=== PATIENT | female | born 1970 | race Caucasian/White ===

== ENCOUNTER 2016-06-05 18:23 | Emergency (ER) | payer OTHER ==
[2016-06-05] MEDS ORDERED: Lidocaine 1% 20 ML MDV ONE (18:47)
[2016-06-05] MEDS ORDERED: cefTRIAXone\\ROCEPHIN 500 MG VIAL ONE (18:47)
[2016-06-05] MEDS ORDERED: Ketorolac Tromethamine 60 MG/2 ML VIAL ONE (18:47)
[2016-06-05 18:59] LABS: #Basophils 0.1 thou/uL (0.0-0.2); #Eosinphils 0.2 thou/uL (0.0-0.7); #Lymphocytes 1.4 thou/uL (1.20-3.40); #Monocytes 0.6 thou/uL (0.11-0.59); #Neutrophils 4.2 thou/uL (1.40-6.50); %Basophils 0.9 % (0.0-1.0); %Eosinophils 2.6 % (0.0-10.0); %Monocytes 9.7 % (0.0-10.0); Anisocytosis SLIGHT = 6-15 cells (100X) (0-5/hpf); Elliptocytes MODERATE= 6-15 cells (100X) (0-1/hpf); Hematocrit 29.5 % (36.0-47.0); Hypochromia MODERATE=16-30 cells (100X) (0-5/hpf); Mean Platelet Volume 5.6 fL (7.4-10.4); Microcytosis MODERATE=15-30 cells (100X) (0-5/hpf); Poikilocytosis SLIGHT = 6-15 cells (100X) (0-5/hpf); Red Blood Cell (RBC) Count 4.26 mill/uL (4.20-5.40); Tear Drops SLIGHT = 2-5 cells (100X) (0-1/hpf); White Blood Cell (WBC) Count 6.4 thou/uL (4.8-10.8)
[2016-06-05 19:08] LABS: Bacteria/HPF Rare-Few HPF (None Seen); Bilirubin Negative (Negative); Blood, Urine Large (Negative); Glucose, Urine (Dipstick) Negative (Negative); Ketone, Urine Negative (Negative); Nitrite Negative (Negative); Protein, Urine (Dipstick) Negative (Neg-Trace); RBC/HPF 21-50 HPF (0-3); Squamous Epithelial 0-3 HPF (0-3); Urobilinogen 0.2 mg/dL (0.2-1.0); WBC/HPF 0-3 HPF (0-3)
[2016-06-05 19:09] LABS: Anion Gap 11 mmol/L (10-20); BUN (Urea Nitrogen) 9 mg/dL (7.0-18.7); Calc. Creatinine Clearance 0 mL/min (70-130); Calcium 8.8 mg/dL (7.8-10.44); Carbon Dioxide 24 mmol/L (22-29); Chloride 108 mmol/L (98-107); Estimated GFR-MDRD Greater than 90
--- NOTE | 2016-06-05 19:42 | ERRECORD ---
[facility] EMERGENCY RECORD ROS CONSTITUTIONAL: Negative constitutional review of systems, Historian denies chills, denies fever. (19:12 MBRI) CARDIOVASCULAR: Historian denies chest pain, denies dyspnea on exertion. (19:12 MBRI) RESPIRATORY: Historian denies cough, denies shortness of breath. (19:12 MBRI) GI: Negative gastrointestinal review of systems, Historian denies abdominal pain, denies diarrhea, denies nausea, denies vomiting. (19:12 MBRI) GENITOURINARY FEMALE: Historian denies dysuria, denies frequency, denies hematuria, denies , denies urgency, denies urine output changes, denies urinary retention, reports vaginal bleeding, reports vaginal discharge, reports vaginal itching. (19:13 MBRI) MUSCULOSKELETAL: Historian denies injury, Denies any musculoskeletal pain. (19:12 MBRI) SKIN: Negative skin review of systems, Historian denies skin changes. (19:12 MBRI) NEUROLOGIC: Negative neurologic review of systems, Historian denies focal weakness, denies sensory changes. (19:12 MBRI) PAST MEDICAL HISTORY (18:32 KMOR) MEDICAL HISTORY: No past medical history. FEMALE SURGICAL HISTORY: d&c, Surgical history of tonsillectomy, Surgical history of tubal ligation. PSYCHIATRIC HISTORY: No previous psychiatric history. SOCIAL HISTORY: Patient drinks socially, rarely, Patient denies drug use, Patient has no smoking history. KNOWN ALLERGIES No Known Drug Allergies CURRENT MEDICATIONS (18:30 KMOR) None VITAL SIGNS VITAL SIGNS: BP: 134/95, Pulse: 88, Resp: 18, Pain: 9, O2 sat: 99 on Room Air, Time: 06/05/2016 18:29. (18:29 KMOR) Temp: 97.8 (Oral), Time: 06/05/2016 18:59. (18:59 KMOR) PHYSICAL EXAM CONSTITUTIONAL: Vital Signs Reviewed, Nursing notes reviewed. (19:12 MBRI) HEAD: Head exam included findings of head atraumatic, normocephalic. (19:12 MBRI) RESPIRATORY CHEST: Respiratory exam included findings of no respiratory distress, Breath sounds clear, No wheezing, No rales, No rhonchi. (19:12 MBRI) CARDIOVASCULAR: Cardiovascular exam included findings of heart &a-1R&a+25V*p+0X*q3189M*c202B*c15G*c2P*p-0X&a-25V&a+1R Name: Felipa Reyes : 1970 F46 MedRec: [id number] AcctNum: [id number] Prepared: Sonja Jun 05, 2016 19:29 by Interface Page [address] [facility] EMERGENCY RECORD rate regular rate and rhythm, Heart sounds normal, Carotids normal. (19:12 MBRI) ABDOMEN FEMALE: Abdominal exam included findings of abdomen nontender, Bowel sounds normal, no peritoneal signs, no rigidity, no guarding, no rebound. (19:12 MBRI) GENITOURINARY FEMALE: External genitalia normal, Genitourinary exam included findings of external genitalia normal, vaginal mucosa normal, Discharge present, brown in color, moderate amount. (19:13 MBRI) PELVIC: Speculum exam abnormal, external os closed, bloody discharge present, Foreign body noted, appears to be tampon., Bimanual exam abnormal, internal os closed, Cervix not dilated, No cervical motion tenderness, Uterus tender, Escorted by ZHEN Carson. (19:14 MBRI) BACK: Back exam included findings of normal inspection, no tenderness. (19:12 MBRI) UPPER EXTREMITY: Upper extremity exam included findings of inspection normal, Radial pulse normal, no cyanosis, no clubbing, no edema. (19:12 MBRI) LOWER EXTREMITY: Lower extremity exam included findings of inspection normal, femoral pulses normal, no cyanosis, no clubbing, no edema, no tenderness noted. (19:12 MBRI) NEURO: Neuro exam findings include patient oriented to person, place and time, Speech normal, no focal motor deficits. (19:12 MBRI) SKIN: Skin exam included findings of skin warm, dry, and normal in color. (19:12 MBRI) MEDICATION ADMINISTRATION SUMMARY Drug Name: ketorolac intramuscular, Dose Ordered: 60 mg, Route: Intramuscular, Status: Given, Time: 18:52 06/05/2016, Drug Name: cefTRIAXone injection, Dose Ordered: 250 mg, Route: Intramuscular, Status: Given, Time: 18:51 06/05/2016, Detailed record available in Medication Service section. DOCTOR NOTES (19:15 MBRI) TEXT: Pt evaluated at this time and appears stable. No findings to suggest sig illness or issue requiring hospitalization or further intervention at this time. Plan of care discussed with pt and questions answered. Pt was informed of reasons for follow-up and return and they stated understanding. Pt is stable for d/c home at this time. PROBLEM LIST No recorded problems DIAGNOSIS (19:16 MBRI) FINAL: PRIMARY: vaginal foreign body - removed, ADDITIONAL: ANEMIA UNSPECIFIED, FE PELVIC INFLAMMATORY DISEASE &a-1R&a+25V*p+0X*c9703F*c202B*c15G*c2P*p-0X&a-25V&a+1R Name: Felipa Reyes : 1970 F46 MedRec: [id number] AcctNum: [id number] Prepared: Sonja Jun 05, 2016 19:29 by Interface Page [address] [facility] EMERGENCY RECORD UNS. PRESCRIPTION (18:46 MBRI) doxycycline hyclate oral: CAPSULE (HARD, SOFT, ETC.) : 100 mg : ORAL : Quantity: 1 Unit: tab(s) Route: ORAL Schedule: 2 times a day Dispense: 20 May substitute. Refills: No Refills . NOTES: this medication will render your control pills ineffective while you are on them. Use other forms of contraception. No refills. DISPOSITION PATIENT: Disposition Type: Discharge, Disposition: *Discharge Home, Condition: Good. (19:15 MBRI) Patient left the department. (19:25 MAYO) Quevedo: MAYO=ZHEN Jeffrey, Eliane LILLY=ZHEN Calderon, Yamileth MBRI=DO Johnson Matthew &a-1R&a+25V*p+0X*i3397M*c202B*c15G*c2P*p-0X&a-25V&a+1R Name: Felipa Reyes : 1970 F46 MedRec: [id number] AcctNum: [id number] Prepared: Sonja Jun 05, 2016 19:29 by Interface Page 3 of 3 pMD MTDD
--- NOTE | 2016-06-05 19:48 | PICIS ---
[facility] EMERGENCY RECORD TRIAGE (18:30 KMOR) TRIAGE NOTES: Vaginal bleed, odor, low back pain and bodyaches intermittent x 1 month. nausea. (18:30 KMOR) PATIENT: NAME: Felipa Reyes, AGE: 46, GENDER: female, : [facility] 1970, TIME OF GREET: Sun Jun 05, 2016 18:24, PREFERRED LANGUAGE: Slovak, ETHNICITY: Unable to Determine, ECODE BILLING MAP: [facility], SSN: [id number], Zip Code: [address], KG WEIGHT: 80.74, PHONE: , , , PERSON ID: [id number], PAYMENT: [employer], PCP: Sharon Ingram. (18:30 KMOR) COMPLAINT: Vaginal bleeding. (18:30 KMOR) ADMISSION: URGENCY: 3 Urgent, ADMISSION SOURCE: Home, TRANSPORT: CAR, BED: ER -03. (18:30 KMOR) ASSESSMENT: Assessment: A&OX4. RR EVEN AND UNLABORED., Symptoms began greater than 1 week ago. (18:32 KMOR) PAIN: Patient complains of pain described as, aching, on a scale 0-10 patient rates pain as 9, Location LOW BACK. (18:32 KMOR) SIRS SCORING: Heart Rate 55-109 (0), Temp range 96.8-101.1 (0), respiratory rate 12-24 (0), Mental Status altered: no (0), Infection or Suspected Infection: No. (18:32 KMOR) TRIAGE SCREENING: Patient denies suicidal ideation, Patient denies presence of domestic violence. (18:32 KMOR) LMP: Last menstrual period: 05/15/2016. (18:32 KMOR) PROVIDERS: TRIAGE NURSE: Yamileth Calderon RN. (18:30 KMOR) VITAL SIGNS: BP 134/95, Pulse 88, Resp 18, Pain 9, O2 Sat 99, on Room Air, Time 06/05/2016 18:29. (18:29 KMOR) KNOWN ALLERGIES No Known Drug Allergies CURRENT MEDICATIONS (18:30 KMOR) None VITAL SIGNS VITAL SIGNS: BP: 134/95, Pulse: 88, Resp: 18, Pain: 9, O2 sat: 99 on Room Air, Time: 06/05/2016 18:29. (18:29 KMOR) Temp: 97.8 (Oral), Time: 06/05/2016 18:59. (18:59 KMOR) NURSING ASSESSMENT: GENITOURINARY (18:54 KMOR) CONSTITUTIONAL: Patient arrives ambulatory, Gait steady, History obtained from patient, Patient appears comfortable, Patient cooperative, Patient alert, Oriented to person, place and time, Skin warm, Skin dry, Skin normal in color, Mucous membranes pink, Mucous membranes moist, Patient is well-groomed, Patient complains of Vaginal bleeding, Patient reports low back pain and vaginal bleeding intermittent for past 3 weeks. Reports foul odor with bleeding. Report generalized body aches and headache recently. PAIN FEMALE: aching pain, generalized., on a scale 0-10 patient rates pain as 9. &a-1R&a+25V*p+0X*o3735N*c202B*c15G*c2P*p-0X&a-25V&a+1R Name: Felipa Reyes : 1970 F46 MedRec: [id number] AcctNum: [id number] Prepared: Sonja Jun 05, 2016 19:35 by Interface Page 1 of 8 pMD [facility] EMERGENCY RECORD GENITOURINARY FEMALE: no associated urinary complaints, Associated with vaginal bleeding, small amount, of brown blood, no clots, no tissue, Onset of bleedin05/19/2016 18:57, Associated with vaginal foreign body, tampon, Date and time inserted: 3 weeks, Not . ABDOMEN: Abdomen assessment findings include abdomen symmetrical, no associated nausea, no associated vomiting. NOTES: Patient tolerated procedure well. NURSING PROCEDURE: PELVIC EXAM (18:58 KMOR) PATIENT IDENTIFIER: Patient actively involved in identification process, Patient's identity verified by patient stating name, Patient's identity verified by patient stating date. PELVIC EXAM: Pelvic exam indicated for vaginal bleeding, Pelvic exam performed by Dr. Johnson, Pelvic exam assisted by ZHEN Carson, Exam findings include, moderate amount, of red vaginal discharge, with odor, Exam findings include bleeding, moderate amount, no clots, no tissue, GC/Chlamydia cultures obtained, labeled in the presence of the patient and sent to lab, Specimen for wet prep collected, labeled in the presence of the patient and sent to lab, Notes: tampon removed. FOLLOW-UP: After procedure, bleeding continues, scant amount. NOTES: Patient tolerated procedure well. NURSING PROCEDURE: URINE COLLECTION (19:01 KMOR) PATIENT IDENTIFIER: Patient actively involved in identification process, Patient's identity verified by patient stating name, Patient's identity verified by patient stating date. URINE COLLECTION FEMALE: Urine collected by mid-stream clean catch, Output amount (mL) 100ml, urine clear in color, and cloudy, Specimen labeled in the presence of the patient and sent to lab, Specimen obtained for culture labeled in the presence of the patient and sent to lab. ORDER DETAILS Order Name: Basic Metabolic Panel, Status: Active, Time: 18:33 06/05/2016, User: LAUREN, - Ordered for: DO Johnson Matthew, - Entered by: DO Johnson Matthew - Sonja Jun 05, 2016 18:33, - Quantity: 1, Order Name: CBC with Differential, Status: Active, Time: 18:32 06/05/2016, User: LAUREN, - Ordered for: DO Johnson Matthew, - Entered by: DO Johnson Matthew - Sonja Jun 05, 2016 18:32, - Quantity: 1, Order Name: Culture, Urine, Status: Active, Time: 19:01 06/05/2016, &a-1R&a+25V*p+0X*z7761Q*c202B*c15G*c2P*p-0X&a-25V&a+1R Name: Felipa Reyes : 1970 F46 MedRec: [id number] AcctNum: [id number] Prepared: Sonja Jun 05, 2016 19:35 by Interface Page 2 of 8 pMD [facility] EMERGENCY RECORD User: VIJAYA, - Ordered for: DO Johnson Matthew, - Entered by: ZHEN Calderon Krista - Sonja Jun 05, 2016 19:01, - Quantity: 1, Order Name: GC/Chlamydia Profile by PCR, Status: Active, Time: 18:34 06/05/2016, User: LAUREN, - Ordered for: DO Johnson Matthew, - Entered by: DO Johnson Matthew - Sonja Jun 05, 2016 18:34, - Quantity: 1, Order Name: Test, Serum (BHCG), Status: Active, Time: 18:32 06/05/2016, User: LAUREN, - Ordered for: DO Johnson Matthew, - Entered by: DO Johnson Matthew - Sun Jun 05, 2016 18:32, - Quantity: 1, Order Name: PROCEDURE SET-UP, Status: Done, Time: 18:37 06/05/2016, User: ADRIENNE, - Ordered for: DO Johnson Matthew, - Entered by: DO Johnson Matthew - Sun Jun 05, 2016 18:34, - Quantity: 1, Order Name: Urinalysis with Microscopic, Status: Active, Time: 19:01 06/05/2016, User: VIJAYA, - Ordered for: DO Johnson Matthew, - Entered by: ZHEN Calderon Krista - Sonja Jun 05, 2016 19:01, - Quantity: 1, Order Name: VP3, Status: Active, Time: 18:34 06/05/2016, User: LAUREN, - Ordered for: DO Johnson Matthew, - Entered by: DO Johnson Matthew - Sun Jun 05, 2016 18:34, - Quantity: 1. MEDICATION ADMINISTRATION SUMMARY Drug Name: ketorolac intramuscular, Dose Ordered: 60 mg, Route: Intramuscular, Status: Given, Time: 18:52 06/05/2016, Drug Name: cefTRIAXone injection, Dose Ordered: 250 mg, Route: Intramuscular, Status: Given, Time: 18:51 06/05/2016, Detailed record available in Medication Service section. MEDICATION SERVICE cefTRIAXone injection: Order: cefTRIAXone injection (ceftriaxone sodium) - Dose: 250 mg : Intramuscular Ordered by: Abel Johnson DO Entered by: DO Sonja Hernandez Jun 05, 2016 18:44 , Acknowledged by: Marie Thacker RN MonJun 05, 2016 18:45 Documented as given by: ZHEN Barrios Jun 05, 2016 18:51 Patient, Medication, Dose, Route and Time verified prior to administration. IM antibiotic, Medication administered to right buttock, Medication combined for administration with 1% LIDOCAINE, Correct patient, time, route, dose and medication confirmed prior to administration, Patient advised of actions and side-effects prior to administration, &a-1R&a+25V*p+0X*r4244R*c202B*c15G*c2P*p-0X&a-25V&a+1R Name: Felipa Reyes : 1970 F46 MedRec: [id number] AcctNum: [id number] Prepared: Sonja Jun 05, 2016 19:35 by Interface Page 3 of 8 pMD [facility] EMERGENCY RECORD Allergies confirmed and medications reviewed prior to administration, Patient in position of comfort, Side rails up, Cart in lowest position, Family at bedside. ketorolac intramuscular: Order: ketorolac intramuscular (ketorolac tromethamine) - Dose: 60 mg : Intramuscular Ordered by: Abel Johnson DO Entered by: DO Sonja Hernandez Jun 05, 2016 18:45 , Acknowledged by: ZHEN Barrios Jun 05, 2016 18:45 Documented as given by: ZHEN Barrios Jun 05, 2016 18:52 Patient, Medication, Dose, Route and Time verified prior to administration. IM medication, Medication administered to left buttock, Correct patient, time, route, dose and medication confirmed prior to administration, Patient advised of actions and side-effects prior to administration, Allergies confirmed and medications reviewed prior to administration, Patient in position of comfort, Side rails up, Cart in lowest position, Family at bedside. ROS CONSTITUTIONAL: Negative constitutional review of systems, Historian denies chills, denies fever. (19:12 MBRI) CARDIOVASCULAR: Historian denies chest pain, denies dyspnea on exertion. (19:12 MBRI) RESPIRATORY: Historian denies cough, denies shortness of breath. (19:12 MBRI) GI: Negative gastrointestinal review of systems, Historian denies abdominal pain, denies diarrhea, denies nausea, denies vomiting. (19:12 MBRI) GENITOURINARY FEMALE: Historian denies dysuria, denies frequency, denies hematuria, denies , denies urgency, denies urine output changes, denies urinary retention, reports vaginal bleeding, reports vaginal discharge, reports vaginal itching. (19:13 MBRI) MUSCULOSKELETAL: Historian denies injury, Denies any musculoskeletal pain. (19:12 MBRI) SKIN: Negative skin review of systems, Historian denies skin changes. (19:12 MBRI) NEUROLOGIC: Negative neurologic review of systems, Historian denies focal weakness, denies sensory changes. (19:12 MBRI) PAST MEDICAL HISTORY (18:32 KMOR) MEDICAL HISTORY: No past medical history. FEMALE SURGICAL HISTORY: d&c, Surgical history of tonsillectomy, Surgical history of tubal ligation. PSYCHIATRIC HISTORY: No previous psychiatric history. SOCIAL HISTORY: Patient drinks socially, rarely, Patient denies drug use, Patient has no smoking history. PHYSICAL EXAM CONSTITUTIONAL: Vital Signs Reviewed, Nursing notes reviewed. &a-1R&a+25V*p+0X*g1759E*c202B*c15G*c2P*p-0X&a-25V&a+1R Name: Felipa Reyes : 1970 F46 MedRec: [id number] AcctNum: [id number] Prepared: Sonja Jun 05, 2016 19:35 by Interface Page 4 of 8 pMD [facility] EMERGENCY RECORD (19:12 MBRI) HEAD: Head exam included findings of head atraumatic, normocephalic. (19:12 MBRI) RESPIRATORY CHEST: Respiratory exam included findings of no respiratory distress, Breath sounds clear, No wheezing, No rales, No rhonchi. (19:12 MBRI) CARDIOVASCULAR: Cardiovascular exam included findings of heart rate regular rate and rhythm, Heart sounds normal, Carotids normal. (19:12 MBRI) ABDOMEN FEMALE: Abdominal exam included findings of abdomen nontender, Bowel sounds normal, no peritoneal signs, no rigidity, no guarding, no rebound. (19:12 MBRI) GENITOURINARY FEMALE: External genitalia normal, Genitourinary exam included findings of external genitalia normal, vaginal mucosa normal, Discharge present, brown in color, moderate amount. (19:13 MBRI) PELVIC: Speculum exam abnormal, external os closed, bloody discharge present, Foreign body noted, appears to be tampon., Bimanual exam abnormal, internal os closed, Cervix not dilated, No cervical motion tenderness, Uterus tender, Escorted by ZHEN Carson. (19:14 MBRI) BACK: Back exam included findings of normal inspection, no tenderness. (19:12 MBRI) UPPER EXTREMITY: Upper extremity exam included findings of inspection normal, Radial pulse normal, no cyanosis, no clubbing, no edema. (19:12 MBRI) LOWER EXTREMITY: Lower extremity exam included findings of inspection normal, femoral pulses normal, no cyanosis, no clubbing, no edema, no tenderness noted. (19:12 MBRI) NEURO: Neuro exam findings include patient oriented to person, place and time, Speech normal, no focal motor deficits. (19:12 MBRI) SKIN: Skin exam included findings of skin warm, dry, and normal in color. (19:12 MBRI) LAB INTERPRETATION (19:15 MBRI) INTERPRETATION: I reviewed the lab results. EVENTS TRANSFER: Triage to Emergency Emergency Room -03. (Sonja Jun 05, 2016 18:30 KMOR) Removed from Emergency Emergency Room -03. (19:25 CHOB) O2SAT INTERPRETATION (18:47 MBRI) O2SAT: Oxygen saturation interpretation: Normal. DOCTOR NOTES (19:15 MBRI) TEXT: Pt evaluated at this time and appears stable. No findings to suggest sig illness or issue requiring hospitalization or further intervention at this time. Plan of care discussed with pt and &a-1R&a+25V*p+0X*q4482J*c202B*c15G*c2P*p-0X&a-25V&a+1R Name: Felipa Reyes : 1970 F46 MedRec: [id number] AcctNum: [id number] Prepared: Sonja Jun 05, 2016 19:35 by Interface Page 5 of 8 pMD [facility] EMERGENCY RECORD questions answered. Pt was informed of reasons for follow-up and return and they stated understanding. Pt is stable for d/c home at this time. PROBLEM LIST No recorded problems DIAGNOSIS (19:16 MBRI) FINAL: PRIMARY: vaginal foreign body - removed, ADDITIONAL: ANEMIA UNSPECIFIED, FE PELVIC INFLAMMATORY DISEASE UNS. DISPOSITION PATIENT: Disposition Type: Discharge, Disposition: *Discharge Home, Condition: Good. (19:15 MBRI) Patient left the department. (19:25 CHOB) INSTRUCTION (19:16 MBRI) DISCHARGE: PID, VAGINAL FOREIGN BODY, REMOVED (ADULT). FOLLOWUP: [facility], [facility], [address] [place] [address] , , Follow up with Primary Care Physician in 7-10 days. SPECIAL: Please return for any further issues or concerns, we would be happy to see you. We hope you feel better soon. Follow-up with your primary physician as needed Tylenol or Advil for Pain May return to work. PRESCRIPTION (18:46 MBRI) doxycycline hyclate oral: CAPSULE (HARD, SOFT, ETC.) : 100 mg : ORAL : Quantity: 1 Unit: tab(s) Route: ORAL Schedule: 2 times a day Dispense: 20 May substitute. Refills: No Refills . NOTES: this medication will render your control pills ineffective while you are on them. Use other forms of contraception. No refills. RESULTS LABORATORY: Urinalysis with Microscopic Collection DT: Sonja Jun 05, 2016 19:06, Color Yellow , Range (Yellow), Clarity Hazy , Range (Clear), Specific Cedar, Urine 1.020 , Range (1.005-1.030), pH, Urine 6.5 , Range (5.0-9.0), *Leukocyte Small - H , Range (Negative), Nitrite Negative , Range (Negative), Protein, Urine (Dipstick) Negative mg/dL, Range (Neg-Trace), Glucose, Urine (Dipstick) Negative mg/dL, Range (Negative), Ketone, Urine Negative mg/dL, Range (Negative), &a-1R&a+25V*p+0X*f0356P*c202B*c15G*c2P*p-0X&a-25V&a+1R Name: Felipa Reyes : 1970 F46 MedRec: [id number] AcctNum: [id number] Prepared: Sonja Jun 05, 2016 19:35 by Interface Page 6 of 8 pMD [facility] EMERGENCY RECORD Urobilinogen 0.2 mg/dL, Range (0.2-1.0), Bilirubin Negative , Range (Negative), *Blood, Urine Large - H , Range (Negative), *RBC/HPF 21-50 - H HPF, Range (0-3), WBC/HPF 0-3 HPF, Range (0-3), Squamous Epithelial 0-3 HPF, Range (0-3), Bacteria/HPF Rare-Few HPF, Range (None Seen). (19:12 MBRI) Basic Metabolic Panel Collection DT: Sonja Jun 05, 2016 18:52, Sodium 139 mmol/L, Range (136-145), Potassium 3.6 mmol/L, Range (3.5-5.1), *Chloride 108 - H mmol/L, Range (98-107), Carbon Dioxide 24 mmol/L, Range (22-29), Anion Gap 11 mmol/L, Range (10-20), BUN (Urea Nitrogen) 9 mg/dL, Range (7.0-18.7), Creatinine 0.66 mg/dL, Range (0.6-1.1), Estimated GFR-MDRD Greater than 90 , Reference Range for Estimated GFR: Greater than 90, mL/min/1.73 m2 NOTE: The MDRD equation has not been validated for use, with the elderly (over 70 years of age), women, patients with, serious comorbid condition or persons with extremes of body size, muscle, mass, or nutritional status. , Glucose 99 mg/dL, Range (70-105), Calcium 8.8 mg/dL, Range (7.8-10.44). (19:12 MBRI) CBC with Differential Collection DT: Sonja Jun 05, 2016 18:52, White Blood Cell (WBC) Count 6.4 thou/uL, Range (4.8-10.8), Red Blood Cell (RBC) Count 4.26 mill/uL, Range (4.20-5.40), *Hemoglobin 9.3 - L g/dL, Range (12.0-16.0), *Hematocrit 29.5 - L %, Range (36.0-47.0), *Mean Corpuscular Volume 69.2 - L fl, Range (81.0-99.0), *Mean Corpuscular Hemoglobin 21.9 - L pg, Range (27.0-31.0), *Mean Corpuscular HGB CONC 31.6 - L g/dL, Range (32.0-36.0), RBC Distribution Width 14.2 %, Range (11.5-14.5), Platelet Count 370 thou/uL, Range (130-400), *Mean Platelet Volume 5.6 - L fL, Range (7.4-10.4), %Neutrophils 65.0 %, Range (42.0-75.0), %Lymphocytes 21.7 %, Range (21.0-51.0), %Monocytes 9.7 %, Range (0.0-10.0), %Eosinophils 2.6 %, Range (0.0-10.0), %Basophils 0.9 %, Range (0.0-1.0), #Neutrophils 4.2 thou/uL, Range (1.40-6.50), #Lymphocytes 1.4 thou/uL, Range (1.20-3.40), *#Monocytes 0.6 - H thou/uL, Range (0.11-0.59), #Eosinphils 0.2 thou/uL, Range (0.0-0.7), #Basophils 0.1 thou/uL, Range (0.0-0.2), Anisocytosis SLIGHT = 6-15 cells (100X), Range (0-5/hpf), Poikilocytosis SLIGHT = 6-15 cells (100X), Range (0-5/hpf), &a-1R&a+25V*p+0X*i2268U*c202B*c15G*c2P*p-0X&a-25V&a+1R Name: Felipa Reyes : 1970 F46 MedRec: [id number] AcctNum: [id number] Prepared: Sonja Jun 05, 2016 19:35 by Interface Page 7 of 8 pMD [facility] EMERGENCY RECORD Microcytosis MODERATE=15-30 cells (100X), Range (0-5/hpf), Hypochromia MODERATE=16-30 cells (100X), Range (0-5/hpf), Elliptocytes MODERATE= 6-15 cells (100X), Range (0-1/hpf), Tear Drops SLIGHT = 2-5 cells (100X), Range (0-1/hpf). (19:12 MBRI) Test, Serum (BHCG) Collection DT: Sonja Jun 05, 2016 18:52, BHCG - Serum NEGATIVE , Range (NEGATIVE), Method of sensitivity- Indeterminant: results should be repeated, after 48 hours. Positive: results may be detected as early as 4-5 days before a first missed menses. Elimination of BHCG-, Elimination following first trimester D&C: 29-44 Days , Elimination following term : 8-24 Days . (19:16 RI) Quevedo: MAYO=ZHEN Jeffrey, Eliane LILLY=ZHEN Calderon, Yamileth MBRI=DO Johnson Matthew &a-1R&a+25V*p+0X*j2320S*c202B*c15G*c2P*p-0X&a-25V&a+1R Name: Felipa Reyes : 1970 F46 MedRec: [id number] AcctNum: [id number] Prepared: Sonja Jun 05, 2016 19:35 by Interface Page 8 of 8 pMD [facility] MEDICATION RECONCILIATION You were seen in the Emergency Department on: Sonja Jun 05, 2016 KNOWN ALLERGIES No Known Drug Allergies MEDICATIONS GIVEN WHILE IN THE EMERGENCY DEPARTMENT cefTRIAXone injection (ceftriaxone sodium) - Dose: 250 milligram(s) : Intramuscular ketorolac intramuscular (ketorolac tromethamine) - Dose: 60 milligram(s) : Intramuscular HOME MEDICATIONS None Notes from the emergency department Reviewed with patient PRESCRIPTIONS (1) &a-1R&a+25V*p+0X*i5129F*c202B*c15G*c2P*p-0X&a-25V&a+1R Name: Felipa Reyes : 1970 F46 MedRec: [id number] AcctNum: [id number] Prepared: Sonja Jun 05, 2016 19:35 by Interface [facility]MD [facility]
== END 2016-06-05 19:20 | disposition home or self-care (01) ==
LOC: BURERS 18:23
DX: T19.2XXA Foreign body in vulva and vagina, initial encounter (principal); N73.9 Female pelvic inflammatory disease, unspecified; D64.9 Anemia, unspecified; Z90.89 Acquired absence of other organs; Z98.51 Tubal ligation status
CPT/HCPCS: 36415; 80048; 81001; 84703; 85025; 87086; 87480; 87491; 87510; 87591; 87661; J0696; J1885; J2001

== ENCOUNTER 2016-08-07 14:28 | Emergency (ER) | payer OTHER, SELFPAY ==
[2016-08-07] MEDS ORDERED: Ondansetron HCl/PF 4 MG/2 ML Vial ONE (15:12)
[2016-08-07] MEDS ORDERED: Famotidine In NaCl 20 mg/50 ml Premix Bag ONE (15:12)
[2016-08-07 15:56] LABS: #Basophils 0.1 thou/uL (0.0-0.2); #Eosinphils 0.1 thou/uL (0.0-0.7); #Lymphocytes 1.7 thou/uL (1.20-3.40); #Monocytes 0.7 thou/uL (0.11-0.59); #Neutrophils 4.6 thou/uL (1.40-6.50); %Basophils 1.5 % (0.0-1.0); %Eosinophils 1.1 % (0.0-10.0); %Monocytes 9.2 % (0.0-10.0); ALT (SGPT) 32 U/L (0-55); AST (SGOT) 24 U/L (5-34); Alkaline Phosphatase 79 U/L (40-150); Anion Gap 15 mmol/L (10-20); BUN (Urea Nitrogen) 10 mg/dL (7.0-18.7); Bilirubin, Total 0.3 mg/dL (0.2-1.2); Calc. Creatinine Clearance 0 mL/min (70-130); Calcium 8.8 mg/dL (7.8-10.44); Carbon Dioxide 20 mmol/L (22-29); Chloride 108 mmol/L (98-107); Estimated GFR-MDRD Greater than 90; Globulin 2.8 g/dL (2.4-3.5); Hypochromia SLIGHT = 6-15 cells (100X) (0-5/hpf); Lipase 18 U/L (8-78); Mean Platelet Volume 6.9 fL (7.4-10.4); Microcytosis SLIGHT = 6-15 cells (100X) (0-5/hpf); Ovalocytes SLIGHT = 2-5 cells (100X) (0-1/hpf); Protein, Total 6.6 g/dL (6.0-8.3); Red Blood Cell (RBC) Count 4.08 mill/uL (4.20-5.40); White Blood Cell (WBC) Count 7.1 thou/uL (4.8-10.8)
[2016-08-07 16:31] LABS: Bilirubin Negative (Negative); Blood, Urine Large (Negative); Glucose, Urine (Dipstick) Negative (Negative); Ketone, Urine Negative (Negative); Nitrite Negative (Negative); Protein, Urine (Dipstick) > or equal to 300 mg/dL (Neg-Trace); Urobilinogen 0.2 mg/dL (0.2-1.0)
[2016-08-07 16:33] LABS: Bacteria/HPF None Seen HPF (None Seen); RBC/HPF GREATER THAN 50-TNTC HPF (0-3); Squamous Epithelial 0-3 HPF (0-3); WBC/HPF 0-3 HPF (0-3)
== END 2016-08-07 17:41 | disposition home or self-care (01) ==
LOC: BURERS 14:28
DX: E86.0 Dehydration (principal); N92.1 Excessive and frequent menstruation with irregular cycle; D64.9 Anemia, unspecified
CPT/HCPCS: 80053; 81003; 81015; 81025; 83690; 85025; 94760; 96361; 96365; 96375; J2405

== ENCOUNTER 2025-05-07 14:01 | Emergency (ER) | payer OTHER ==
[2025-05-07] MEDS ORDERED: Lidocaine 1%/Epinephrine 1:100K 10 ML VIAL ONE (14:16)
== END 2025-05-07 14:50 | disposition home or self-care (01) ==
LOC: BURERS 14:01
DX: N76.4 Abscess of vulva (principal); I10 Essential (primary) hypertension
CPT/HCPCS: 99282